=== PATIENT | female | born 1990 | race Caucasian/White ===

== ENCOUNTER 2019-10-16 07:00 | Inpatient (IN) | payer MEDICAID ==
[2019-10-16] VITALS (36 sets, daily range): BP systolic 93–127; BP diastolic 50–74; PULSE 74–106; TEMP 97.4–98.8
[~2019-10-16] VITALS: Ht 170.2 cm; Wt 74.1 kg
--- NOTE | 2019-10-16 07:30 | NUR ---
G4L2 at 40.1 weeks gestation to LDR3 with c/o leaking fluid. Patient states that she felt a gush of fluid around 0300 and again around 0530. She is scheduled for an induction tomorrow and is GBS+. Patient changed into gown and wedged to left side in bed, EFMs explained and applied. FHR 130bpm and reactive. Irregular CTX per toco and patient report. VSS. SVE /-3, amniotrace inserted into vagina speckled with blue, no fluid noted with exam. Plan of care reviewed with patient and spouse.
[2019-10-16] MEDS ORDERED: ZYRTEC 10MG10 MG PO (07:49)
[2019-10-16] MEDS ORDERED: PRENATAL TABLET PO (07:50)
--- NOTE | 2019-10-16 08:25 | NUR ---
Pitocin started at 2mu per orders and protocol. Pen G infusing per GBS+ protocol.
[2019-10-16 08:40] LABS: BASO % 0.5 % (0.0-2.0); EOS # 0.2 (0.0-0.7); EOS % 2.7 % (0-4.0); GRAN % 67.8 % (42.2-75.2); HEMOGLOBIN 11.8 g/dl (12.5-16.0); LYMPH # 1.8 (1.2-3.4); LYMPH % 20.7 % (20.0-51.0); MEAN CELL VOLUME 88 fl (80.0-100.0); MEAN CORPUSCULAR HEMOGLOBIN 29 pg (27.0-31.0); MEAN CORPUSCULAR HGB CONC 33 g/dl (33.0-37.0); MEAN PLATELET VOLUME 9.3 fl (7.4-10.4); MONO # 0.7 (0.1-0.6); MONO % 7.6 % (1.7-9.3); PLATELET COUNT 235 K/mm3 (130-400); RED BLOOD COUNT 4.09 M/mm3 (4.10-5.30); REDCELL DISTRIBUTION WIDTH-CV 13.6 % (11.5-14.5)
--- NOTE | 2019-10-16 08:45 | NUR ---
Dr. Levin on unit, reviews FHR tracing, to patient room, SVE with AROM, /-2, small amount of clear fluid noted. Plan of care reviewed.
[2019-10-16 08:48] LABS: HEMATOCRIT 36.1 % (37.0-47.0)
--- NOTE | 2019-10-16 09:35 | NUR ---
Patient more uncomfortable with contractions, breathing through them, requesting epidural, [employer]PER[employer]OR notified.
--- NOTE | 2019-10-16 10:15 | NUR ---
1007 PREETI Willett to room to place epidural. Patient sits upright on the edge of the bed. EFM difficult to monitor in this position and intermittenly monitors. Test dose administered at 1015, see anesthesia record for details. 1020 Patient wedged to left side.
--- NOTE | 2019-10-16 10:55 | NUR ---
1046 BP: 85/54, 1053 BP: 79/47, 1055 10mg ephedrine given IV push, 1057 BP:101/56. 1107 BP: 88/52, 1108 10mg ephedrine given IV push, 1112 BP: 91/55.
--- NOTE | 2019-10-16 15:11 | NUR ---
1450 Patient c/o increased vaginal pressure and feeling the urge to push. SVE complete/+1. Dr. Levin called, updated and on her way to the hospital. 1506 Dr. Levin to room, patient prepped for delivery, begins to push with contractions. 1511 Spontaneous vaginal delivery of viable female infant by Dr. Levin, cord clamped and cut and infant to the care of the nursery, RN. 1518 Spontaneous delivery of placenta by Dr. Levin, pitocin started at 333ml/hr per orders and protocol. Fundus firm, lochia WNL. Repair of 1st degree laceration by Dr. Levin.
[2019-10-17 03:00] VITALS: BP 92/60; PULSE 72; TEMP 98
[2019-10-17 08:00] VITALS: BP 101/75; PULSE 83; TEMP 98.4
--- NOTE | 2019-10-17 11:00 | NUR ---
Initial visit; Parent thanked Cold Roll Packer Sheet Iron for offering congratulations and God's blessings for the of her daughter. [employer] P[employer] Iron thanked patient for choosing [facility].
[2019-10-17] MEDS ORDERED: IBU800 M1 PO (14:06)
[2019-10-17 16:00] VITALS: BP 112/68; PULSE 71; TEMP 97.7
[2019-10-17 21:15] VITALS: BP 99/61; PULSE 88; TEMP 97.7
[2019-10-18 07:42] VITALS: BP 106/69; PULSE 84
== END 2019-10-18 09:25 | disposition home or self-care (01) | DRG 807 ==
LOC: LDRO 07:00 → OB 07:44 → LDR 07:44 → OB 17:11
PROVIDERS: ADMIT Student in an Organized Health Care Education/Training Program
PROC: 10E0XZZ Delivery of Products of Conception, External Approach (ICD-10-PCS; principal; 2019-10-16)
PROC: 0HQ9XZZ Repair Perineum Skin, External Approach (ICD-10-PCS; 2019-10-16)
DX: O99.824 Streptococcus B carrier state complicating childbirth (principal); Z37.0 Single live birth; O48.0 Post-term pregnancy; O66.3 Obstructed labor due to other abnormalities of fetus; Z3A.41 41 weeks gestation of pregnancy; O69.81X0 Labor and delivery complicated by cord around neck, without compression, not applicable or unspecified; O70.0 First degree perineal laceration during delivery; O74.6 Other complications of spinal and epidural anesthesia during labor and delivery
CPT/HCPCS: J2540; J2590; J7120